=== PATIENT | female | born 1975 | race Caucasian/White ===

== ENCOUNTER 2016-09-01 18:37 | Emergency (ER) | payer SELFPAY ==
--- NOTE | 2016-09-01 19:43 | ER NURSING DOCUMENTATION ---
Nurse's Notes [facility] Name:Rony Hastings Age:41 yrs Sex:Female :1975 Arrival Date:09/01/2016 Time:18:37 Bed2 Private MD: Diagnosis:Bee Sting - Toxic Effect-: To finger / local reaction Presentation: 09/01 19:10 Presenting complaint: Patient states: got stung by a insect. thinks it might have been mv a bee but not for sure. experiencing pain and mild swelling in finger. Transition of care: Camp. 19:10 Acuity: KAROLINA 4 mv 19:21 Method Of Arrival: Walk In Triage Assessment: 19:36 General: Appears in no apparent distress, Behavior is cooperative. Pain: Complains of rh pain in palmar aspect of proximal phalanx of left middle finger. EENT: Oral mucosa is moist. Neuro: Level of Consciousness is awake, alert, obeys commands, Oriented to person, place, time, event. Cardiovascular: Capillary refill < 3 seconds. Respiratory: Airway is patent Respiratory effort is even, unlabored, Respiratory pattern is regular, symmetrical. GI: Denies nausea. Historical: - Allergies: Depakote; Motrin; Vistaril; - Home Meds: 1. Ambien Oral 2. Wellbutrin Oral 3. Xanax Oral 4. Amoxicillin Oral 5. Prednisone Oral - PMHx: BRONCOSPASM; DEPRESSION; BIPOLAR DISORDER; ANXIETY; - PSHx: None; - Tetanus: unknown. - Ebola Screening: : Patient negative for fever greater than or equal to 101.5 degrees Fahrenheit, and additional compatible Ebola Virus Disease symptoms. - Immunization history: Flu Vaccine None. - Social history: Smoking status: unknown if patient ever smoked tobacco. Screenin:37 Infectious Disease Risk None. Abuse screen: Denies threats or abuse. Denies injuries rh from another. Nutritional screening: No deficits noted. Assessment: 19:37 See Triage Assessment done by same RN. rh Vital Signs: 19:36 BP 159 / 100; Pulse 92; Resp 17; Temp 98.1(O); Pulse Ox 94% on R/A; Pain 3/10; rh ED Course: 18:42 Patient arrived in ED. ds 19:00 Notified ED Physician of patient's arrival and chief complaint. Dr. Peña notified. rh 19:10 Ice pack applied. 19:19 darnell larios is Primary Nurse. 19:22 Rolo Peña MD is Attending Physician. cd 19:24 Triage completed. 19:37 Valuables Remains with patient Patient has correct armband on for positive rh identification. Call light in reach. Administered Medications: No medications were administered Outcome: 19:29 Discharge ordered by MD. 19:42 Discharged to home ambulatory. 19:42 Condition: improved 19:42 Discharge Assessment: Patient awake, alert and oriented x 3. No cognitive and/or functional deficits noted. Patient verbalized understanding of disposition instructions. 19:42 Discharge instructions given to patient, Instructed on discharge instructions, follow up and referral plans. medication usage, Demonstrated understanding of instructions, medications, Prescriptions given X 3. 19:42 Patient left the ED. 09/02 12:26 Discharge F/U Call: Unable to reach: no answer st Signatures: Tanya Chacon RN RN st Srot, Sandra, Reg Reg ds Rolo Peña MD MD cd Hofsess, Rachel darnell larios
--- NOTE | 2016-09-01 19:43 | ER PHYSICIAN DOCUMENTATION ---
Physician Documentation [facility] Name:Rony Hastings Age:41 yrs Sex:Female :1975 Arrival Date:09/01/2016 Time:18:37 Bed2 Private MD: Rolo Luu Disposition: 09/01/16 19:29 Discharged to Home/Self Care. Impression: Bee Sting - Toxic Effect - : To finger / local reaction. - Condition is Good. - Discharge Instructions: BEE STING Local Reaction - ALLERGIC REACTION, Insect (Local). - Prescriptions for EpiPen 2- Cristian - inject 1 Syringe by INTRAMUSCULAR route as needed; 2 Syringe. Pepcid 20 mg Oral Tablet - take 1 tablet by ORAL route every 12 hours for 5 days; 10 tablet. Prednisone 20 mg Oral - take 2 tablet by ORAL route once daily for 5 days; 1 tablet. - Medical Reconciliation form form. - Follow up: Private Physician; When: 4- 6 days; Reason: Recheck today's complaints, Continuance of care. - Problem is new. - Symptoms are unchanged. - Notes: Ice packs and elevate your right hand and fingers for two days. Take Benadryl 25mg by mouth every 6 hours for 2 - 3 days. Continue the Prednisone you are already on.... Put together an "Allergy Kit" that you have with you where ever you go. Epi Pen Unit IM Benadryl 50mg by mouth Pepcid 20mg by mouth Prednisone 40mg by mouth HPI: 09/01 19:00 This 41 yrs old Female presents to ER via Walk In with complaints of Bee cd Sting. 19:00 The patient was bitten on the palmar aspect of proximal phalanx of left middle finger, cd by a bee, in an unprovoked manner, outdoors. Onset: The symptom(s)/episode began/occurred acutely, 3 hour(s) ago. Infection risk factors: bite to the hand. Secondary to the bite the patient reports erythema, swelling, tenderness. Associated signs and symptoms: The patient has no apparent associated signs or symptoms. Severity of symptoms: At their worst the symptoms were moderate, in the emergency department the symptoms are unchanged. Historical: - Allergies: Depakote; Motrin; Vistaril; - Home Meds: 1. Ambien Oral 2. Wellbutrin Oral 3. Xanax Oral 4. Amoxicillin Oral 5. Prednisone Oral - PMHx: BRONCOSPASM; DEPRESSION; BIPOLAR DISORDER; ANXIETY; - PSHx: None; - Tetanus: unknown. - Ebola Screening: : Patient negative for fever greater than or equal to 101.5 degrees Fahrenheit, and additional compatible Ebola Virus Disease symptoms. - Immunization history: Flu Vaccine None. - Social history: Smoking status: unknown if patient ever smoked tobacco. ROS: 19:35 Constitutional: Negative for chills, fever. cd 19:35 ENT: Negative for sore throat, hoarseness. 19:35 Respiratory: Negative for shortness of breath, wheezing. 19:35 Skin: Positive for swelling, of the palmar aspect of proximal phalanx of left middle finger. 19:35 All other systems are negative. Exam: 19:35 ENT: Exam is negative for acute changes, Voice: is normal. cd 19:35 Respiratory: the patient does not display signs of respiratory distress, Respirations: normal, Breath sounds: are normal, clear throughout, wheezing, is not appreciated. 19:35 Skin: Appearance: normal except for affected area, injury, bite(s), deep, of the palmar aspect of proximal phalanx of left middle finger. Vital Signs: 19:36 BP 159 / 100; Pulse 92; Resp 17; Temp 98.1(O); Pulse Ox 94% on R/A; Pain 3/10; rh MDM: 19:22 Patient medically screened. cd 19:25 Rabies Status: Rabies immunization is not indicated. Data reviewed: vital signs, nurses cd notes, old medical records, and as a result, I will discharge patient. Data interpreted: Pulse oximetry: on room air is 94 %. Interpretation: normal. Counseling: I had a detailed discussion with the patient and/or guardian regarding: the historical points, exam findings, and any diagnostic results supporting the discharge/admit diagnosis, the need for outpatient follow up, for a recheck, with the patient's primary care provider, to return to the emergency department if symptoms worsen or persist or if there are any questions or concerns that arise at home. 19:29 Patient medically screened. cd 09/01 19:28 Order name: Ice Packs; Complete Time: 19:33 cd Dispensed Medications: No medications were administered Signatures: Rolo Peña MD MD cd Hofsess, Gail rh
== END 2016-09-01 19:43 | disposition home or self-care (01) ==
LOC: ER 18:37
DX: T63.441A Toxic effect of venom of bees, accidental (unintentional), initial encounter (principal); S60.473A Other superficial bite of left middle finger, initial encounter; Z79.899 Other long term (current) drug therapy
CPT/HCPCS: 99282